=== PATIENT | male | born 1955 | race Caucasian/White ===

== ENCOUNTER 2024-08-23 05:50 | Day surgery (SDC) | payer MEDICARE, OTHER, SELFPAY ==
[2024-08-14 09:31] VITALS: BMI 42.9
[2024-08-23] VITALS (14 sets, daily range): BP systolic 94–140; BP diastolic 68–90
[2024-08-23 07:00] LABS: Glucose - Point of Care 185 mg/dl (70-99)
[2024-08-23] MEDS: MAGNESIUM SULFATE 100 IV (07:19)
[2024-08-23 08:49] LABS: ACT-LR - POC 302 Seconds (116-155)
[2024-08-23 08:56] LABS: Glucose - Point of Care 151 mg/dl (70-99)
--- NOTE | 2024-08-23 09:19 | ITS.CL.ABL ---
Medical Historian - Ablation
Ablation
Procedure Report:
ELECTROPHYSIOLOGY ABLATION STUDY
DATE:: 08/23/2024�����������������������������REFERRING: Dr. Efrain Gregory
INDICATION: Persistent supraventricular tachycardia in the form of atrial fibrillation.�Prior cryo in 2016
HISTORY: See H and P.��As above
ANTIARRHYTHMIC DRUG:Toprol
PRE-PROCEDURE JOCE: No intracardiac thrombus
PRESENTING RHYTHM: A-fib
'TIME-OUT':��called and confirmed.
SEDATION/ANESTHESIA:��provided via the anesthesia department using general anesthesia (LMA).
INTRAVENOUS/ARTERIAL ACCESS:
Right femoral venous - 8Fr
Left femoral venous - 8 Fr, 6 Fr
Ultrasound guidance for bilateral femoral vein access was utilized by me to obtain access with demonstration of normal anatomy
CHADS-VASC Score:
HAS-Bled Score
PROCEDURE:
1.��A decapolar CS catheter was placed within the CS for mapping and pacing.��This was also used as the reference catheter for the 3-D map.
2. The intracardiac ultrasound catheter was positioned in the RA to identify the FO for targeting of transseptal puncture, assist��in identification of the pulmonary vein ostia, monitoring pre and post ablation pulmonary vein flow velocities,
monitoring for 'bubble' formation during RF application as a sign of thermal injury,��and to monitor for pericardial effusion during mapping and ablation procedure.���Left atrial size, LV ejection fraction, and pulmonary vein flows were monitored
pre and post ablation procedure. The other valves were inspected and found to be free of significant regurgitation or stenosis.
3.��Half of the calculated heparin bolus was administered prior to the first transeptal puncture.��Transseptal puncture was performed to diagnose RA and LA pressure so that safety of LA mapping and ablation could be further assessed, and to access
the left atrium and pulmonary veins for mapping and ablation.��This entailed advancing an 16.8 Somali sheath, RF wire and sheath with dilator into the superior vena cava and withdrawing both (monitoring intracardiac ultrasound, fluoroscopy and tip
pressure) with the tip oriented toward the atrial septum.��The fossa ovalis was engaged (indicated by sudden displacement of the sheath tip as well as tenting of the fossa seen on intracardiac ultrasound).��Left atrial access required a pass with
the [place]rough needle extended.��Left atrial catheter position was confirmed by pressure monitoring (RA mean pressure 8 mm Hg and LA mean pressure [14 mm Hg), LA saturation ( 99 %),��as well as fluoroscopy.��The sheath was advanced over the
dilator and positioned in the left atrium.��This procedure was repeated for the Agilis sheath.��The remainder of the calculated heparin bolus was administered and heparin was
infused to maintain ACT at 300 -350 seconds throughout the case.
4.��RA pacing was performed via the proximal decapolar poles and LA pacing was performed via the distal decapolr poles.
5. A quadripolar catheter was first positioned at the His position for His Bundle recording which was tagged via the 3-D Navex sytem, and then passed to the RVA for RV pacing and recording.
6. The LIPV, LSPV, RSPV and the RIPV, multipolar catheter and the PFA catheter placed in each of the pulmonary veins. The pulmonary veins were isolated at baseline
7.��Next, a 3-D map was created using Navex.���A 3-D reconstructed CT image was compared to the 3-D Navex map to assist in anatomic interpretation, mapping and ablation.��The CT image and the NavX image were fused.
8. A total of 41 lesions were given in all of and basket post to the left pulmonary veins and flower post to the roof posterior wall floor and interatrial septum as well as the right pulmonary vein daisy and flower position. Entrance block was
confirmed in all 4 pulmonary veins and the posterior wall and then the patient was converted to sinus rhythm with 1 300 J synchronized biphasic shock and exit block was confirmed in all of these structures.
Post procedure EP study did not demonstrate any other tachyarrhythmias.
9. Normal sinus node and AV germain function.
TOTAL FLOURO TIME: 11.6 minutes 112 mGy
TOTAL RF DURATION: 0 minutes
REVERSAL OF HEPARIN: 30 mg of protamine, slow IV administration
COMPLICATIONS:
None
Intracardiac US shows no pericardial effusion post ablation.
SUMMARY:��
Complex left atrial mapping and ablation.
Reisolation of the left pulmonary veins. Isolation of the left atrial roof floor and posterior wall. Additional substrate modification of the interatrial septum.
RECOMMENDATIONS:
1. Ambulate in 4 hours
2. Resume anticoagulation
3.��Consider same-day discharge
4.��With any further recurrence class or antiarrhythmic drug can be considered
Copy to: Dr. Efrain Gregory
--- NOTE | 2024-08-23 09:33 | PTCARENOTE ---
Patient not responding to verbal stimuli or sternal rub. VSS 97% 8L simple mask. BACON SKINNER at bedside performed jaw thrust and patient responded. Able to move all extremities but a little agitated. Once patient calmed down he has been pleasant with
staff and able to respond to verbal stimuli. c/o of some jaw pain 07/10. [employer] aware
[2024-08-23 10:42] LABS: Glucose - Point of Care 140 mg/dl (70-99)
[2024-08-23] MEDS: ANESTHETIC LOZENGE 1 LOZENGE PO (13:24)
--- NOTE | 2024-08-23 14:05 | PTCARENOTE ---
Patient ambulated to bathroom without difficulty. Upon returning to stretcher patient felt warmth down left leg. Blood noticed. Patient back to stretcher. pressure held on left groin for 10 mins. no hematoma noted after 10 mins of pressure. [employer]
aware. Will continue to monitor.
--- NOTE | 2024-08-23 15:01 | W.PN.UPDATE ---
Update Note
Progress Note Update
69 yo WM s/p PVI (same day). He denies cp, mild sore throat and groin discomfort which improved after F08 sutures removed, arlene diet, voiding, EKG SR 1 deg AVB. When ambulating to BR L groin had bleed, manual pressure held for 10min and no further
bleeding. He will resume Pradaxa at 7pm at home tonight. Activity restrictions reviewed. He will f/u Dr. Gregory in 1 mo. He is for d/c home after 330p if groin remains stable.
== END 2024-08-23 15:46 | disposition home or self-care (01) ==
LOC: CATH 05:50
PROVIDERS: ATTENDING PHYSICIAN Internal Medicine Cardiovascular Disease
DX: I48.0 Paroxysmal atrial fibrillation (principal); I47.10 Supraventricular tachycardia, unspecified; E66.01 Morbid (severe) obesity due to excess calories; Z68.41 Body mass index [BMI] 40.0-44.9, adult; I10 Essential (primary) hypertension; E78.5 Hyperlipidemia, unspecified; M10.9 Gout, unspecified; E11.9 Type 2 diabetes mellitus without complications; Z79.84 Long term (current) use of oral hypoglycemic drugs; G47.33 Obstructive sleep apnea (adult) (pediatric); M19.90 Unspecified osteoarthritis, unspecified site; Z86.19 Personal history of other infectious and parasitic diseases; Z79.899 Other long term (current) drug therapy; Z79.82 Long term (current) use of aspirin; Z79.02 Long term (current) use of antithrombotics/antiplatelets
CPT/HCPCS: C1732; C1894; C1730; C1892; C1759; 82962; 85347; 93005; 93656; 93657; C1733; C1766